=== PATIENT | male | born 1970 | race Caucasian/White ===

== ENCOUNTER 2017-06-12 12:19 | Emergency (ER) | payer OTHER ==
[~2017-06-12] VITALS: Ht 154.9 cm; Wt 61.5 kg
[~2017-06-12 12:19] MED LIST: AMITRYPTYLINE PO; BENTYL20 MG PO; DICLOFENAC PO; FLEXERIL PO; IBUPROFEN PO; NAPROXEN500 M1 PO; PHENERGAN12.5 MG PO; PHENERGAN25 M1 PO; ULTRAM PO; ZOFRAN ODT4 MG PO; ZOFRANODT PO
[2017-06-12 12:39] LABS: BASOPHIL# 0.1 X10e3 (0-0.3); EOSINOPHIL# 0.1 X10e3 (0-0.7); EOSINOPHIL% 1.7 % (0.0-7.0); HEMATOCRIT 44.8 % (38.0-50.0); HEMOGLOBIN 15.3 gm/dL (13.0-16.0); LYMPHOCYTE# 2.1 X10e3 (1.0-3.5); LYMPHOCYTE% 27.2 % (17.0-45.0); MEAN CELL VOLUME 92.6 FL (83-96); MEAN CORPUSCULAR HEMOGLOBIN 31.6 PG (28-34); MEAN CORPUSCULAR HGB CONC 34.1 g/dL (30-36); MEAN PLATELET VOLUME 7.6 FL (6.5-11.5); MONOCYTE# 0.6 X10e3 (0-1.0); MONOCYTE% 8.3 % (3.0-12.0); NEUTROPHIL# 4.7 X10e3 (1.5-7.1); NEUTROPHIL% 61.8 % (40-75); PLATELET COUNT 291 X10e3 (140-420); RED BLOOD COUNT 4.83 X10e (3.90-5.60); RED CELL DISTRIBUTION WIDTH 13.5 % (11.0-15.5); WHITE BLOOD COUNT 7.6 X10e3 (4.0-10.5)
[2017-06-12 12:41] LABS: DIFF IND NO
[2017-06-12 13:07] LABS: ALBUMIN SERUM 4.3 g/dL (3.5-5.0); BILIRUBIN, DIRECT 0.1 mg/dL (0.0-0.2); BILIRUBIN,INDIRECT 0.4 mg/dL (0.0-0.9); BILIRUBIN,TOTAL 0.5 mg/dL (0.2-2.0); BUN/CREATININE RATIO 9.09; CALCIUM SERUM 8.8 mg/dL (8.4-10.2); CREATININE SERUM 1.1 mg/dL (0.6-1.4); GLOM FILT RATE Estimated 80.7 mL/min (>60); POTASSIUM 3.6 mmol/L (3.5-5.1); PROTEIN TOTAL SERUM 7.1 g/dL (6.0-8.3)
== END 2017-06-12 14:05 | disposition home or self-care (01) ==
LOC: CED 12:19
DX: R10.9 Unspecified abdominal pain (principal)
CPT/HCPCS: 36415; 80048; 80076; 82150; 83690; 85025; 99284

== ENCOUNTER 2017-06-27 02:04 | Emergency (ER) | payer OTHER ==
[~2017-06-27] VITALS: Ht 170.2 cm; Wt 61.2 kg
--- NOTE | ~2017-06-27 | CT4 ---
[facility]. [facility] A Service of [facility] RADIOLOGY TEXT RESULTS PATIENT: MALINDA ROSARIO LOCATION: SED : 74 UNIT #: [id number] AGE: [address]: Brennan Cordon MD SEX: M ORDER DR: [id number] [address] [address] [id number] E MR#: [id number] Acc #: [id number] NAME: MALINDA ROSARIO : 1970 SEX: M STUDY DATE/TIME: 06/27/2017 02:39 UNIT: SED ROOM: STUDY DESCRIPTION: CT Abd and Pelv Wo Cont Attending Physician: Brennan Cordon M.D. Ordering Physician: Brennan Cordon M.D. Primary Care Physician: Laura Dye M.D. MEDICAL IMAGING REPORT This report is preliminary unless electronic signature is present. EXAM CT of abdomen and pelvis, 06/27/2017 at 02:39. INDICATIONS Left lower quadrant abdominal pain for 2 weeks. Patient unable to urinate over the last 6 hours. TECHNIQUE Axial noncontrast images were obtained through the abdomen and pelvis. Multiplanar reformats were obtained. This CT exam was performed with one or more of the following radiation dose reduction techniques: automatic exposure control, adjustment of mA and/or kV according to patient size, and iterative reconstruction. COMPARISON No comparison. FINDINGS ABDOMEN: Lung bases are clear. Gallbladder is unremarkable. There is mild left hydronephrosis secondary to a 3 mm stone in the left distal ureter a few cm above the UVJ. Tiny nonobstructing stone noted in left kidney. Unenhanced solid organs otherwise are normal. Moderate stool volume in the colon suggest constipation. No bowel obstruction. No free fluid or adenopathy. PELVIS: Urinary bladder is normal. The appendix is normal. The distal small bowel is unremarkable. IMPRESSION 1. Mild left hydronephrosis secondary to a 3 mm stone in the distal left ureter a few cm above the UVJ. 2. Tiny nonobstructing stone left kidney. 3. Probable constipation. Normal appendix. No bowel obstruction. [facility] A Service of [facility] RADIOLOGY TEXT RESULTS PATIENT: MALINDA ROSARIO LOCATION: SED : 74 UNIT #: [id number] AGE: [address]: Brennan Cordon MD SEX: M ORDER DR: Dictated by... Matt Tellez Jr., M.D. THIS IS AN ELECTRONICALLY VERIFIED REPORT Matt Tellez Jr., M.D. at 06/28/2017 4:56 AM SASHA/izzy TD: 06/27/2017 22:46 JOB #: [id number] MEDICAL IMAGING REPORT Page 1 of 1
[2017-06-27] MEDS ORDERED: FLAGYL PO (02:18)
[2017-06-27 02:40] LABS: BASOPHIL# 0.1 X10e3 (0-0.3); BASOPHIL% 0.7 % (0-2.5); DIFF IND NO; EOSINOPHIL# 0.2 X10e3 (0-0.7); EOSINOPHIL% 1.6 % (0.0-7.0); HEMATOCRIT 41.8 % (38.0-50.0); HEMOGLOBIN 14.1 gm/dL (13.0-16.0); LYMPHOCYTE# 1.8 X10e3 (1.0-3.5); LYMPHOCYTE% 16.8 % (17.0-45.0); MEAN CELL VOLUME 93.2 FL (83-96); MEAN CORPUSCULAR HEMOGLOBIN 31.5 PG (28-34); MEAN CORPUSCULAR HGB CONC 33.8 g/dL (30-36); MEAN PLATELET VOLUME 7.5 FL (6.5-11.5); MONOCYTE# 0.7 X10e3 (0-1.0); MONOCYTE% 6.7 % (3.0-12.0); NEUTROPHIL# 8.1 X10e3 (1.5-7.1); NEUTROPHIL% 74.2 % (40-75); PLATELET COUNT 272 X10e3 (140-420); RED BLOOD COUNT 4.49 X10e (3.90-5.60); RED CELL DISTRIBUTION WIDTH 13.3 % (11.0-15.5)
[2017-06-27 02:57] LABS: ALBUMIN SERUM 4.5 g/dL (3.5-5.0); BILIRUBIN,TOTAL 0.6 mg/dL (0.2-2.0); BUN/CREATININE RATIO 14.54; CALCIUM SERUM 8.7 mg/dL (8.4-10.2); CREATININE SERUM 1.1 mg/dL (0.6-1.4); GLOM FILT RATE Estimated 80.7 mL/min (>60); POTASSIUM 3.2 mmol/L (3.5-5.1); PROTEIN TOTAL SERUM 6.9 g/dL (6.0-8.3)
[2017-06-27] MEDS ORDERED: HYDROCODON-ACE1 EAC7 PO (05:58)
[2017-06-27] MEDS ORDERED: ZOFRAN PO (05:58)
[2017-06-27] MEDS ORDERED: CIPRO PO (05:58)
[2017-06-27] MEDS ORDERED: FLOMAX0.4 M1 PO (05:58)
== END 2017-06-27 06:04 | disposition home or self-care (01) ==
LOC: SED 02:04
DX: N13.2 Hydronephrosis with renal and ureteral calculous obstruction (principal); F17.200 Nicotine dependence, unspecified, uncomplicated; Z79.899 Other long term (current) drug therapy
CPT/HCPCS: 36415; 74176; 80053; 85025; 96374; 96375; 99284; J1885; J2405

== ENCOUNTER 2017-06-29 12:59 | Emergency (ER) | payer OTHER ==
[~2017-06-29] VITALS: Ht 170.2 cm; Wt 56.7 kg
--- NOTE | ~2017-06-29 | CT4 ---
[facility] A Service of [facility] RADIOLOGY TEXT RESULTS PATIENT: MALINDA ROSARIO LOCATION: [facility] : 74 UNIT #: [id number] AGE: [address]: Nik Melendez MD SEX: M ORDER DR: [id number] [facility] [address] [place], [place] [address] [id number] E MR#: [id number] Acc #: [id number] NAME: MALINDA ROSARIO : 1970 SEX: M STUDY DATE/TIME: 06/29/2017 13:46 UNIT: RUI ROOM: STUDY DESCRIPTION: CT Abd and Pelv Wo Cont Attending Physician: Nik Melendez M.D. Ordering Physician: Nik Melendez M.D. Primary Care Physician: Laura Dye M.D. MEDICAL IMAGING REPORT This report is preliminary unless electronic signature is present EXAM CT abdomen and pelvis without contrast, 06/29/2017. HISTORY Left flank pain for [address] abdomen and pelvis without contrast, 06/27/2017. PROCEDURE 3-mm noncontrasted axial images through the abdomen and pelvis. Enteric contrast was not administered. Sagittal and coronal reformatted images were obtained. FINDINGS A 3-mm stone is lodged within the distal third of the left ureter a few centimeters above the left ureterovesical junction. It is virtually unchanged in position compared to 06/27/2017. Mild left hydronephrosis and hydroureter persist. There is mild perinephric inflammatory stranding. Tiny nonobstructing stone is redemonstrated within the left kidney. No right renal or ureteral calculi are identified. Lung bases are clear. Noncontrast appearance of the liver, gallbladder, spleen, pancreas, and adrenals within normal limits. Moderate generalized colonic stool burden. No evidence of high-grade bowel obstruction. Appendix appears normal. PELVIS FINDINGS: Urinary bladder, prostate, and rectum are within normal limits. No pelvic adenopathy or free fluid. Multiple calcified pelvic phleboliths incidentally noted. No acute osseous abnormalities. [facility] A Service of [facility] RADIOLOGY TEXT RESULTS PATIENT: MALINDA ROSARIO LOCATION: [facility] : 74 UNIT #: [id number] AGE: [address]: Nik Melendez MD SEX: M ORDER DR: IMPRESSION 1. 3-mm stone in the distal third of the left ureter a few centimeters above the left ureterovesical junction with resulting mild left hydronephrosis and hydroureter. This is unchanged from 06/27/2017. 2. Moderate generalized colonic stool burden, similar to prior exam. Correlate for constipation. 3. The appendix is normal. 4. Small nonobstructing left intrarenal stone. Dictated by... Alicia Mccormack M.D. THIS IS AN ELECTRONICALLY VERIFIED REPORT Alicia Mccormack M.D. at 06/30/2017 8:56 AM Jason TD: 06/29/2017 17:57 JOB #: [id number] MEDICAL IMAGING REPORT Page 1 of 1 COPY
[~2017-06-29 12:59] MED LIST changes: +CIPRO PO; +FLAGYL PO; +FLOMAX0.4 M1 PO; +HYDROCODON-ACE1 EAC7 PO; +ZOFRAN PO
[2017-06-29 13:37] LABS: BASOPHIL# 0.1 X10e3 (0-0.3); BASOPHIL% 0.6 % (0-2.5); EOSINOPHIL% 0.2 % (0.0-7.0); HEMOGLOBIN 13.8 gm/dL (13.0-16.0); LYMPHOCYTE# 1.8 X10e3 (1.0-3.5); LYMPHOCYTE% 20.1 % (17.0-45.0); MEAN CELL VOLUME 92.3 FL (83-96); MEAN CORPUSCULAR HEMOGLOBIN 31.8 PG (28-34); MEAN CORPUSCULAR HGB CONC 34.5 g/dL (30-36); MEAN PLATELET VOLUME 7.6 FL (6.5-11.5); MONOCYTE# 0.3 X10e3 (0-1.0); MONOCYTE% 3.4 % (3.0-12.0); NEUTROPHIL# 6.6 X10e3 (1.5-7.1); NEUTROPHIL% 75.7 % (40-75); PLATELET COUNT 273 X10e3 (140-420); RED BLOOD COUNT 4.34 X10e (3.90-5.60); RED CELL DISTRIBUTION WIDTH 13.3 % (11.0-15.5); WHITE BLOOD COUNT 8.7 X10e3 (4.0-10.5)
[2017-06-29 13:41] LABS: DIFF IND NO
[2017-06-29 13:55] LABS: BILIRUBIN, DIRECT 0.1 mg/dL (0.0-0.2); BILIRUBIN,INDIRECT 0.3 mg/dL (0.0-0.9); BILIRUBIN,TOTAL 0.4 mg/dL (0.2-2.0); BUN/CREATININE RATIO 14.54; CALCIUM SERUM 8.5 mg/dL (8.4-10.2); CREATININE SERUM 1.1 mg/dL (0.6-1.4); GLOM FILT RATE Estimated 80.7 mL/min (>60); POTASSIUM 3.3 mmol/L (3.5-5.1); PROTEIN TOTAL SERUM 6.5 g/dL (6.0-8.3)
[2017-06-29 15:57] LABS: URINE SOURCE CLEAN CATCH
[2017-06-29 16:04] LABS: URINE APPEARANCE CLOUDY; URINE BLOOD 3+ (NEG); URINE COLOR DK YELLOW; URINE GLUCOSE NEG (NEG); URINE KETONE TRACE (NEG); URINE LEUKOCYTE ESTERASE NEG (NEG); URINE NITRATE NEG (NEG); URINE PROTEIN 1+ (NEG); URINE SPECIFIC GRAVITY 1.047 (1.003-1.035)
[2017-06-29 16:07] LABS: URINE BACTERIA AUWI NEG (NEGATIVE); URINE SQUAMOUS EPITHELIAL CELL OCC /[HPF]; UWBCS1 AUWI 0-2 (0-5)
[2017-06-29 16:16] LABS: CULTURE INDICATED? NO; URINE BILIRUBIN NEG (NEG)
[2017-06-29 16:17] LABS: URINE CRYSTALS CALCIUM OXALATE /[HPF]; URINE MUCUS PRESENT
[2017-06-29 16:22] LABS: AMPHETAMINE POS (NEG); BARBITURATES NEG (NEG); BENZODIAZEPINES NEG (NEG); COCAINE NEG (NEG); MARIJUANA NEG (NEG); OPIATES POS (NEG); TRICYCLIC ANTIDEPRESSANTS NEG (NEG); U METHADONE NEG (NEG)
== END 2017-06-29 17:08 | disposition home or self-care (01) ==
LOC: CED 12:59
PROVIDERS: Emergency Medicine
DX: N13.2 Hydronephrosis with renal and ureteral calculous obstruction (principal); F19.10 Other psychoactive substance abuse, uncomplicated; F17.200 Nicotine dependence, unspecified, uncomplicated; Z79.899 Other long term (current) drug therapy
CPT/HCPCS: 36415; 74176; 80048; 80076; 80307; 81003; 83690; 85025; 96374; 96375; 99284; J1885; J2405